=== PATIENT | female | born 1945 | race Hispanic/Latino ===

== ENCOUNTER → 2019-07-29 | Outpatient (CLI) | payer OTHER ==
[~2019-07-29] MED LIST: CEVI30CA PO; FOLI1TAB15 PO; IOHEXOL 350 MG/ML 100ML INFUS..BTL IV ONE; LEVO100T12 PO; LEVO50TA11 PO; NIFE10CA PO; PANT40TA54 PO; PRED5TAB PO; RABE20TA27 PO; TRAM50TA4 PO; ZOLPIDEM; [UNRECOGNIZED DRUG - OTHER]
== END | disposition home or self-care (01) ==
LOC: RAH 07:57
PROVIDERS: ATTEND Family Medicine
DX: N85.8 Other specified noninflammatory disorders of uterus (principal); I70.0 Atherosclerosis of aorta; J98.11 Atelectasis
CPT/HCPCS: 74177; Q9967

== ENCOUNTER → 2020-04-28 | Outpatient (CLI) | payer OTHER ==
[~2020-04-28] MED LIST changes: -IOHEXOL 350 MG/ML 100ML INFUS..BTL IV ONE; -RABE20TA27 PO; +RABE20TA30 PO
== END | disposition home or self-care (01) ==
LOC: RAH 14:50
PROVIDERS: ATTEND Family Medicine
DX: S22.058A Other fracture of T5-T6 vertebra, initial encounter for closed fracture (principal); S22.088A Other fracture of T11-T12 vertebra, initial encounter for closed fracture; X58.XXXA Exposure to other specified factors, initial encounter; Y93.89 Activity, other specified; Y92.89 Other specified places as the place of occurrence of the external cause; Y99.8 Other external cause status
CPT/HCPCS: 72146

== ENCOUNTER → 2020-05-22 | Outpatient (CLI) | payer OTHER | END | disposition home or self-care (01) | LOC: SHCH 13:04 | PROVIDERS: ATTEND Internal Medicine Cardiovascular Disease | DX: R00.2 Palpitations (principal) | CPT/HCPCS: 93306; 93356 ==

== ENCOUNTER → 2021-07-20 | Outpatient (CLI) | payer OTHER ==
[~2021-07-20] MED LIST changes: +REGADENOSON 0.4 MG/5 ML PF SYG IVP SCH
== END | disposition home or self-care (01) ==
LOC: SHCH 08:26
PROVIDERS: ATTEND Internal Medicine Cardiovascular Disease
DX: R06.00 Dyspnea, unspecified (principal); R90.81 Abnormal echoencephalogram; M62.81 Muscle weakness (generalized); R07.89 Other chest pain; R53.83 Other fatigue; R00.2 Palpitations
CPT/HCPCS: 78452; 93017; J2785; A9500 ×2; 96374

== ENCOUNTER → 2022-08-10 | Outpatient (CLI) | payer OTHER ==
[~2022-08-10] MED LIST changes: -CEVI30CA PO; +CEVI30CA12 PO; -REGADENOSON 0.4 MG/5 ML PF SYG IVP SCH
== END | disposition home or self-care (01) ==
LOC: RAH 12:28
PROVIDERS: ATTEND Internal Medicine Gastroenterology
DX: R13.12 Dysphagia, oropharyngeal phase (principal); R63.30 Feeding difficulties, unspecified
CPT/HCPCS: 74230; 92611

== ENCOUNTER → 2024-03-11 | Outpatient (CLI) | payer OTHER ==
[~2024-03-11] MED LIST changes: +ATOR20TA65 PO; +BUDE3CAP10 PO; -CEVI30CA12 PO; +DICY20TA3 PO; +FAMO40TA7 PO; -FOLI1TAB15 PO; +HYDR200T75 PO; +IOHEXOL-350 75 ML VIAL IV ONE; -LEVO100T12 PO; -LEVO50TA11 PO; +LEVO75CA5 PO; +LOPE2 PO; -NIFE10CA PO; +NITR100C4 PO; +OMEP40CA21 PO; -PANT40TA54 PO; -RABE20TA30 PO; +TRAZ-185 PO; -ZOLPIDEM; -[UNRECOGNIZED DRUG - OTHER]
== END | disposition home or self-care (01) ==
LOC: RAH 09:31
PROVIDERS: ATTEND Family Medicine
DX: R22.2 Localized swelling, mass and lump, trunk (principal)
CPT/HCPCS: Q9967